=== PATIENT | male | born 2005 | race Caucasian/White ===

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

== ENCOUNTER 2024-03-19 11:01 | Emergency (ER) | payer SELFPAY ==
[2024-03-19 11:06] VITALS: BP 151/87; PULSE 53; RESP 16; TEMP 36.7; O2SAT 100
--- NOTE | 2024-03-19 11:13 | ED.GENADULT ---
HPI - General Adult General Chief complaint: Nausea/Vomiting/Diarrhea Stated complaint: Vomiting Blood Time Seen by Provider: 03/19/24 11:18 Source: patient, RN notes reviewed and old records reviewed Mode of arrival: ambulatory Limitations: no limitations History of Present Illness HPI narrative: 19-year-old male to Express care with complaint of nausea and vomiting with mild epigastric pain that started this morning. Patient reports having intermittent nausea and vomiting with blood in his vomit for the past 4 months. Patient states he is awaiting an endoscopy. Patient denies fever, abdominal pain, chest pain, shortness of breath, bowel changes, urinary changes. Patient requesting work note. Patient hypertensive in triage, denies pertinent history. Respirations even and nonlabored. Patient in no acute distress. Related Data Home Medications Medication Instructions Recorded Confirmed omeprazole 20 mg capsule,delayed 20 mg PO DAILY 07/07/21 05/17/23 release Allergies Allergy/AdvReac Type Severity Reaction Status Date / Time No Known Allergies Allergy Verified 03/19/24 11:02 Review of Systems Review of Systems: All systems reviewed & are unremarkable except as noted in HPI and below Constitutional: Constitutional: Reports no additional constitutional complaints Eyes: Eyes: Reports no additional eye complaints ENT: Reports system reviewed and no additional complaints, except as documented Cardiovascular: Cardiovascular: Reports no additional cardiovascular complaints, Denies chest pain and Denies dyspnea Respiratory: Respiratory: Reports no additional respiratory complaints, Denies cough and Denies dyspnea Gastrointestinal: Gastrointestinal: Reports nausea and Reports vomiting (blood tinged per pt) Musculoskeletal: Musculoskeletal: Reports no additional musculoskeletal complaints Neurologic: Reports system reviewed and no additional complaints, except as documented Psychiatric: Psychiatric: Reports no additional psychiatric complaints [facility] Past Medical History Medical History (Updated 03/19/24 @ 11:49 by Thao Corona APRN) GERD (gastroesophageal reflux disease) Surgical History Surgical History (Updated 05/11/23 @ 17:51 by PANKAJ Velazquez, ) No pertinent past surgical history Family History Family History Mother Family history non-contributory Social History Social History Smoking status: Current every day smoker Tobacco type: e-cigarettes/vaping Living arrangements: with family Gender identity (if verbalized by the patient): Male Spiritual care concerns: No Comments At the time of my signature, I reviewed and agree with the nursing past medical, surgical, social, and family history. There is no relevant family history pertinent to the patient complaint. Exam Const: General: cooperative, healthy appearing, comfortable, no acute distress, alert and well nourished Nutritional Appearance: well nourished Orientation/consciousness: patient oriented x3 Limitations: no limitations HENMT: Head: normal to inspection Ears: external ears normal Face/Nose/Sinus: Normal external nose present, Normal nares present, normal facial exam, No erythema and No edema Face and sinus: normal facial exam, no erythema and no edema Mouth: Yes Normal oral and palatal mucosa present Eyes: General: appearance normal, both eyes and all related structures Neck: Neck: normal visual inspection, full ROM and no meningeal signs Lymphatic: no lymphadenopathy noted and no lymphedema noted Chest: Chest palpation & inspection: normal inspection of the chest Resp: Effort & Inspection: normal respiratory effort and able to speak in complete sentences Auscultation: clear to auscultation bilaterally Cardio: Jugular venous distension: no JVD Rate: regular rate Rhy
--- NOTE | 2024-03-19 11:46 | PC.NURSE ---
requested work note for today, said had to call off.
== END 2024-03-19 11:56 | disposition home or self-care (01) ==
PROVIDERS: Emergency Provider Nurse Practitioner Family; PCP Hospitalist
DX: K21.9 Gastro-esophageal reflux disease without esophagitis (principal); F17.290 Nicotine dependence, other tobacco product, uncomplicated
CPT/HCPCS: 99213; G0463

== ENCOUNTER 2024-05-25 10:09 | Emergency (ER) | payer SELFPAY ==
--- NOTE | 2024-05-25 10:18 | ED.GENADULT ---
HPI - General Adult General Chief complaint: Eye Problems Stated complaint: right eye injury Time Seen by Provider: 05/25/24 10:18 Source: patient, RN notes reviewed and old records reviewed Mode of arrival: ambulatory Limitations: no limitations History of Present Illness HPI narrative: 19-year-old male to Express Care for complaint of foreign body to right eye. Patient states that he was doing lawn work yesterday when a foreign object into his eye. Patient reports increased tearing initially and now sensation of dry. Patient states that discomfort improves if he keeps his eye closed. Patient states pain is currently 7/10 and primarily in lower medial corner of eye. Patient attempted to flush the eye at home yesterday after the incident but states that discomfort continues. Unable to complete visual acuity in office because patient has difficult time keeping eye open. Patient denies any known visual changes, allergies, or pertinent medical history. Patient sitting up comfortably in exam room. Respirations even and nonlabored. Patient in no acute distress. Related Data Home Medications Medication Instructions Recorded Confirmed omeprazole 20 mg capsule,delayed 20 mg PO DAILY 07/07/21 05/25/24 release Allergies Allergy/AdvReac Type Severity Reaction Status Date / Time No Known Allergies Allergy Verified 05/25/24 10:27 Review of Systems Review of Systems: All systems reviewed & are unremarkable except as noted in HPI and below Constitutional: Constitutional: Reports no additional constitutional complaints Eyes: Eyes: Reports as per HPI, Denies blind spots, Denies blurry vision, Denies change in vision, Denies decreased night vision, Denies diplopia, Denies eye discharge, Reports dry eyes, Reports irritation, Denies loss of vision, Denies other visual disturbances, Reports eye pain and Reports photophobia ENT: Reports system reviewed and no additional complaints, except as documented Cardiovascular: Cardiovascular: Reports no additional cardiovascular complaints, Denies chest pain and Denies dyspnea Respiratory: Respiratory: Reports no additional respiratory complaints, Denies cough and Denies dyspnea Musculoskeletal: Musculoskeletal: Reports no additional musculoskeletal complaints Neurologic: Reports system reviewed and no additional complaints, except as documented Psychiatric: Psychiatric: Reports no additional psychiatric complaints PMFSH Past Medical History Medical History (Updated 05/25/24 @ 11:07 by Thao Corona APRN) GERD (gastroesophageal reflux disease) Surgical History Surgical History (Updated 05/11/23 @ 17:51 by Anselmo Orona, ONLINE PRODUCER, BC) No pertinent past surgical history Family History Family History Mother Family history non-contributory Social History Social History Smoking status: Current every day smoker Tobacco type: e-cigarettes/vaping Living arrangements: with family Gender identity (if verbalized by the patient): Male Spiritual care concerns: No Comments At the time of my signature, I reviewed and agree with the nursing past medical, surgical, social, and family history. There is no relevant family history pertinent to the patient complaint. Exam Const: General: cooperative, healthy appearing, comfortable, no acute distress, alert and well nourished Nutritional Appearance: well nourished Orientation/consciousness: patient oriented x3 Limitations: no limitations HENMT: Head: normal to inspection Ears: external ears normal Face/Nose/Sinus: Normal external nose present, Normal nares present, normal facial exam, No erythema and No edema Face and sinus: normal facial exam, no erythema and no edema Mouth: Yes Normal oral and palatal mucosa present Eyes: Visual Blevins: normal visual blevins by confrontation Alignment and Posi
[2024-05-25 10:28] VITALS: BP 143/64; PULSE 66; RESP 18; TEMP 36.7; O2SAT 98
== END 2024-05-25 11:10 | disposition home or self-care (01) ==
PROVIDERS: Emergency Provider Nurse Practitioner Family; PCP Hospitalist
DX: T15.11XA Foreign body in conjunctival sac, right eye, initial encounter (principal); W44.9XXA Unspecified foreign body entering into or through a natural orifice, initial encounter; Y93.H9 Activity, other involving exterior property and land maintenance, building and construction; K21.9 Gastro-esophageal reflux disease without esophagitis; F17.290 Nicotine dependence, other tobacco product, uncomplicated
CPT/HCPCS: 99213; A9270; G0463

== ENCOUNTER 2024-11-24 10:46 | Emergency (ER) | payer OTHER, SELFPAY ==
--- OUTSIDE RECORDS SUMMARY | 2024-11-24 10:54 | XMS_ITS | Encounter Summary ---
Author Organization [facility] Address [address] [place] [address] Phone Care Team Providers Care Tool And Die Machinist Name Role Phone Logan Mahan MD Primary Care Provider [phone] Shilpi Anguiano APRN, LEAD DIE MOLDER Unavailable Reason for Visit * Reason Comments Medication Refill Encounter Details Date Type Department Care Team (Late st Contact Info) Description 11/16/2024 [facility] [address] [place] [id number] Shilpi Anguiano APRN, LEAD DIE MOLDER [address] [place] [address] Medication Refill Social History Tobacco Use Types Packs/Day Years Used Date Smoking Tobacco: Former Smokeless Tobacco: Never Alcohol Use Standard Drinks/Week Comments No 0 (1 standard drink = 0.6 oz pur e alcohol) Sex and Gender Information Value Date Recorded Sex Assigned at Not on file Legal Sex Male 10:04 PM CDT Gender Identity Not on file Sexual Orientation Not on file documented as of this encounter Plan of Treatment Upcoming Encounters Date Type Department Care Team (Late st Contact Info) Description 12/01/2024 3:30 PM FURNITURE SPRAYER Office Visit [facility] [address] [place] [phone] Shilpi Anguiano APRN, LEAD DIE MOLDER [address] [place] [address] documented as of this encounter Visit Diagnoses Diagnosis Gastroesophageal reflux disease, unspecified whether esophagitis present Epigastric pain Abdominal pain, epigastric documented in this encounter Care Teams Tool And Die Machinist Relationship Specialty Start Date End Date Logan Mahan MD [address] [place] [address] PCP - General Family Medicine 05/09/23 Shilpi Anguiano APRN, LEAD DIE MOLDER [address] [place] [address] Nurse Practitioner Advanced Practice Nurse 12/06/23 documented as of this encounter
--- OUTSIDE RECORDS SUMMARY | 2024-11-24 10:54 | XMS_ITS | Clinical Summary ---
Author Organization [facility] Address [address] [place] [address] Care Team Providers Care Contact Lens Manufacturer Name Role Phone Logan Mahan MD Primary Care Provider [phone] Allergies No known active allergies Medications omeprazole (PriLOSEC) 20 mg capsuleIndicati ons:Gastroesoph ageal reflux disease without esophagitis Take 1 capsule (20 mg total) by mouth daily 90 capsule 08/15/20 24 025 Active famotidine (PEPCID) 20 mg tablet TAKE 1 TABLET (20 MG TOTAL) BY MOUTH 2 (TWO) TIMES A DAY 180 tablet 11/17/19 25 027 Active propranoloL (INDERAL) 20 mg tablet TAKE 1 TABLET (20 MG TOTAL) BY MOUTH 2 (TWO) TIMES A DAY 180 tablet 11/17/19 25 027 Active SUMAtriptan (IMITREX) 50 mg tabletIndicatio ns:Migraine TAKE 1 TABLET (50 MG TOTAL) BY MOUTH ONCE NEEDED FOR MIGRAINE MAY REPEAT AFTER 2 HOURS. 27 tablet 10 11/17/19 25 026 Active famotidine (PEPCID) 20 mg tablet Take 1 tablet (20 mg total) by mouth 2 (two) times a day 180 tablet 08/15/20 24 025 Discontinued propranoloL (INDERAL) 20 mg tablet Take 1 tablet (20 mg total) by mouth 2 (two) times a day 180 tablet 08/15/20 24 025 Discontinued SUMAtriptan (IMITREX) 50 mg tabletIndicatio ns:Migraine Take 1 tablet (50 mg total) by mouth once as needed for migraine May repeat after 2 hours. 27 tablet 08/15/20 24 025 Discontinued Active Problems Problem Noted Date Diagnosed Date Tension type headache 11/03/2022 Assessment & Plan (04/27/2023 3:09 PM CDT): Stable, generally controlled, continue propranolol 20 mg b.i.d., sumatriptan 50 mg daily Assessment & Plan (11/03/2022 5:29 PM IP ATTORNEY): Patient reports headaches last for 1-2 days; no relief with Tylenol, has not tried ibuprofen; gets approximately 6-7 per month, reports sensitivity to light, does not tolerate loud noises or voices Most consistent with migraine well 20 mg b.i.d. ; sumatriptan 50 mg p.r.n. for acute headache Gastroesophageal reflux disease without esophagi tis 11/03/2022 Assessment & Plan (04/27/2023 3:09 PM CDT): Not well controlled, has been vomiting for the past 2-3 weeks, worse in morning Nonbloody, nonbilious Start famotidine 20 mg b.i.d., Prilosec 20 mg daily If no improvement, refer to GI Assessment & Plan (11/03/2022 5:29 PM IP ATTORNEY): Patient reports some foods cause stomach pain, especially hot spicy foods greasy foods; no issues with tomato sauces Start famotidine 20 mg b.i.d. 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 10/21/2011 Bipolar affective disorder 10/21/2011 Assessment & Plan (04/27/2023 3:10 PM CDT): Continues to have ups and Downs, no current medications, would recommend follow- up psychiatry for further management Assessment & Plan (11/03/2022 5:30 PM IP ATTORNEY): Not well controlled, patient reports no current medications, working to establish Psychiatry at [facility] Patient currently stable enough, has been on multiple medications in the past and will hold medications until decision made by Psychiatry 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 10/21/2011 Oppositional defiant disorder 10/21/2011 Encounters Date Type Department Care Team Description 09/19/2024 [facility]phone [facility] [address] [place] [address] Logan Mahan MD Appointment Request from Last 3 Months Immunizations Name Administration Dates Next Due DT 10/06/2013 DTaP 04/05/2008, 5,2004,06/02,2004 HPV, Quadrivalent 04/26/2015,02/20/2015 HPV9 02/11/2016 Hep A, Ped Unspecified 08/19/2006,01/27/2006 Hep B, Adolescent or Pediatric 4,2004,2004,01/22 HiB 05/13/2005, 4,2004,04/01 IPV 04/05/2008, 4,2004,04/01 Influenza, Quadrivalent, Liza l Culture-based MDCK, Preservative Free, Antibiotic Free, Intramuscular 09/16/2021 Influenza, Quadrivalent, Spl it, Preservative Free, Intramuscular 09/17/2022,11/28/2020,02/27/2019,09/01,09/29/2016,09/17/2015 Influenza, Split 08/19/2006,08/31/2005, 4 Influenza, Unspecified 10/03/2024(Deferr ed: Patient Refused),07/19/2023(Deferred: Patient Refused) MMR 04/05/2008,2005 Meningococcal B, OMV (Bexsero) 01/08/2021,2020 Meningococcal Conjugate (Menveo) 02/20/2015 Meningococcal MCV4P (Menactra) 11/28/2020 Pneumococcal Conjugate 7-Valent 05/13/20 05,2004,2004,04/01 TD Preservative Free 10/06/2013 Tdap 02/11/2016,10/06/2013 Varicella 04/05/2008,2005 Surgical History Surgery Date Site/Laterality Comments TONSILECTOMY, ADENOIDECTOMY, BILATERAL MYRINGOTOMY AND TUBES 10/11/2013 - 10/10/2014 Medical History Medical History Date Comments Depression Anxiety Adhd PTSD (post-traumatic stress disorder) OCD (obsessive compulsive disorder) Family History Medical History Relation Name Comments Stroke Brother Hypertension Father Depression Maternal Grandfather Diabetes type II Maternal Grandfather Heart disease Maternal Grandfather Seizures Maternal Grandfather Depression Maternal Grandmother Diabetes type II Maternal Grandmother Hypertension Maternal Grandmother Mental illness Maternal Grandmother Stent Maternal Grandmother Diabetes type II Mother Heart disease Mother Psychosis Mother fatty liver Mother heart disease Mother Diabetes Paternal Grandfather Kidney disease Paternal Grandmother Cancer Sister Relation Name Status Comments Brother Father Other Maternal Grandfather Maternal Grandmother Mother Paternal Grandfather Paternal Grandmother Sister Social History Tobacco Use Types Packs/Day Years Used Date Smoking Tobacco: Some Days Cigarettes 0.3 1 Vaping Smokeless Tobacco: Never Tobacco Cessation:Ready to Q uit: Not Asked; Counseling Given: Not Answered AUDIT-C Answer Date Recorded Q1: How often do you have a drink containing alc ohol? Never 03/24/2023 Average Number of Drinks Not on file 023 Frequency of Binge Drinking Not on file 03/11 PHQ-2 Answer Date Recorded PHQ-2 Total Score (If total score is 3 or more points, staff should administer the PHQ-9) 0 03/24/2023 Exercise Vital Sign Answer Date Recorde d On average, how many days pe r week do you engage in moderate to strenuous exercise (like a brisk walk)? 2 days 10/28/2022 On average, how many minutes do you engage in exercise at this level? 90 min 10/28/2022 Personal Safety Answer Date Recorded Getting School Help Needed Not on file 10/12 Sex and Gender Information Value Date Recorded Sex Assigned at Not on file Legal Sex Male 5:50 AM IP ATTORNEY Gender Identity Not on file Sexual Orientation Not on file Obstetrics History Last Filed Vital Signs Vital Sign Reading Time Taken Comments Blood Pressure 110/70 03/24/2023 1:04 PM CDT Pulse 58 03/24/2023 1:04 PM CDT Temperature 36.6 C (97.9 F) 03/24/2023 1:04 PM CDT Respiratory Rate 16 03/24/2023 1:04 PM CDT Oxygen Saturation 98% 03/24/2023 1:04 PM CDT Inhaled Oxygen Concentration - - Weight 97.3 kg (214 lb 9.6 oz) 03/24/2023 1:04 P M CDT Height 152.4 cm (5') 03/24/2023 1:04 PM CDT Body Mass Index 41.91 03/24/2023 1:04 PM CDT Plan of Treatment Health Maintenance Due Date Last Done Comments Hepatitis C Screening 2004 Regular Well Visit/Exam 18-64 01/22/2022 Depression Screening 03/24/2024 03/24/2023, 10/28/19 23 Covid-19 Vaccine ( season) 2024 09/17/2022, 09/25/2021, 02/27/2021, Additional history exists Influenza Vaccine (#1) 2025 , 09/16/2021, 11/28/2020, Additional history exists Postponed from 06/11/2024 (Patient declined, but will receive in the future) Pneumococcal vaccine <65 (1 of 1 - PPSV23 or PCV20) 09/18/2025 05/13/2005, 2004, 2004, Additional history exists Postponed from 01/22/2010 (Patient declined, but will receive in the future) DTaP/Tdap/Td Vaccine (7 - Td or Tdap) 02/10/2026 02/11/2016, 10/06/2013, 10/06/2013, Additional history exists Hepatitis B Screening Completed 2004 , 2004, 2004, Additional history exists Varicella Vaccines Completed 04/05/2008, 2005 HPV Vaccines Completed 02/11/2016, 04/10, 02/20/2015 Meningococcal Vaccine Completed 11/28/2020, 015 Meningococcal B Vaccine Completed 01/08/2021, 11/[address] [facility] Care Teams Contact Lens Manufacturer Relationship Specialty Start Date End Date Logan Mahan MD [address] [place] [address] PCP - General Family Medicine 05/05/22
--- OUTSIDE RECORDS SUMMARY | 2024-11-24 10:54 | XMS_ITS ---
Author Organization [facility] Address [address] [place] [address] Phone Care Team Providers Care Continuous Loft Operator Name Role Phone Logan Mahan MD Primary Care Provider [phone] Shilpi Anguiano APRN, DIRECTOR OF STRATEGIC INITIATIVES Unavailable [facility] Status:Enrolled (Active) Start date:11/08/2024 Enrollment date:11/08/2024 Related social drivers of health:Intimate Partner Violence, Social Connections, Alcohol Use, Tobacco Use, Financial Resource Strain,Depression, Stress, Physical Activity, Food Insecurity, Transportation Needs, Housing Stability, Utilities Continued Care and Services Coordination
--- OUTSIDE RECORDS SUMMARY | 2024-11-24 10:54 | XMS_ITS | Referral Summary ---
Author Organization [facility] Address [address] [place] [address] Care Team Providers Care Ball Winder Name Role Phone Logan Mahan MD Primary Care Provider [phone] Encounters Date Type Department Care Team Description 09/19/2024 [facility]phone [facility] [address] [place] [address] Logan Mahan MD Appointment Request from Last 3 Months Allergies No known active allergies Medications omeprazole [...] (TWO) TIMES A DAY 180 tablet 11/17/19 027 Active SUMAtriptan (IMITREX) 50 mg tabletIndicatio ns:Migraine TAKE 1 TABLET (50 MG TOTAL) BY MOUTH ONCE NEEDED FOR MIGRAINE MAY REPEAT AFTER 2 HOURS. 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 10/21/2011 Oppositional defiant disorder 10/21/2011 Immunizations Name Administration Dates Next Due DT [...] Preservative Free 10/06/2013 Tdap 02/11/2016,10/06/2013 Varicella 04/05/2008,2005 Social History Tobacco Use Types Packs/Day Years [...] on file Legal Sex Male 5:50 AM SHORER Gender Identity Not on file Sexual Orientation Not on file Last Filed Vital Signs Vital Sign Reading [...] 03/24/2023 1:04 PM CDT Plan of Treatment Not on file Insurance [facility] Care Teams Ball Winder Relationship Specialty Start Date End Date [place] [address] PCP - General Family Medicine 05/05/22
--- OUTSIDE RECORDS SUMMARY | 2024-11-24 10:54 | XMS_ITS | Clinical Summary ---
Author Organization [facility] Address [address] [place] [address] Phone Care Team Providers Care Calciner Operator Helper Name Role Phone Logan Mahan MD Primary Care Provider [phone] Shilpi Anguiano APRN, FIRE EXTINGUISHER TESTER Unavailable Allergies No known active allergies Medications ondansetron (ZOFRAN) 4 MG Tablet Take 1 Tab by mouth every 8 hours as needed for Nausea. 10 Tab 0 5 Active Additional Information Patient not taking.Reported on 11/08/2023 ondansetron (ZOFRAN ODT) 4 MG TABLET DISPERSIBLE Take 1 Tab by mouth every 4 hours as needed for Nausea. 10 Tab 7 Active Additional Information Patient not taking.Reported on 11/08/2023 mirtazapine (REMERON) 15 MG Tablet TK 1 T PO QD HS 7 Active QUEtiapine (SEROQUEL) 100 MG Tablet TK 1 T PO QD IN THE AJ 7 Active naproxen (NAPROSYN) 500 MG Tablet Take 1 Tab by mouth 2 times daily as needed for Moderate or more severe pain. 20 Tab 9 Active Additional Information Patient not taking.Reported on 11/08/2023 lithium 300 MG Tablet Take 300 mg by mouth 2 times daily. Active ondansetron (ZOFRAN) 4 MG Tablet Take 1 Tab by mouth every 8 hours as needed for Nausea - 1st line. 10 Tab 0 Active Additional Information Patient not taking.Reported on 07/14/2022 ibuprofen (MOTRIN) 200 MG Tablet Take 3 Tablets by mouth every 8 hours. 30 Tablet 1 Active Additional Information Patient not taking.Reported on 07/14/2022 methylPREDNISolo ne (MEDROL DOSPACK) 4 MG Tablet Therapy Pack See product package insert for dosing schedule 21 Tablet 1 Active Additional Information Patient not taking.Reported on 07/14/2022 azithromycin (Zithromax Z-Steven) 250 MG Tablet 2 tab(s) daily for 1 day, then 1 tab(s) daily for days 2-5. 6 Tablet 1 Active Additional Information Patient not taking.Reported on 07/14/2022 HYDROcodone-acet aminophen (NORCO) 5-325 MG TabletIndication s:Tooth fracture,Cervica l strain, acute, initial encounter Take 1 Tablet by mouth every 8 hours as needed for Moderate or more severe pain. 12 Tablet 2 Active Additional Information Patient not taking.Reported on 11/08/2023 ibuprofen (MOTRIN) 200 MG Tablet Take 2 Tablets by mouth every 6 hours as needed for Fever. 30 Tablet 2 Active Additional Information Patient not taking.Reported on 11/08/2023 SUMAtriptan (IMITREX) 50 MG Tablet Take 50 mg by mouth. 3 Active propranolol (INDERAL) 20 MG Tablet Take 20 mg by mouth. 3 Active omeprazole (PriLOSEC) 40 MG CAPSULE DELAYED RELEASEIndicatio ns:Gastroesophag eal reflux disease, unspecified whether esophagitis present,Epigastr ic pain Take 1 Capsule by mouth daily. 90 Capsule 3 4 Active Active Problems No known active problems Encounters Date Type Department Care Team Description 11/16/2024 Refill [facility] - Gastroenterology [facility] [address] [place] [address] Shilpi Anguiano APRN, FIRE EXTINGUISHER TESTER Medication Refill from Last 3 Months Social History Tobacco Use Types Packs/Day Years Used Date Smoking Tobacco: Former Smokeless Tobacco: Never Tobacco Cessation:Counseling Given: Not Answered Alcohol Use Standard Drinks/Week Comments No 0 (1 standard drink = 0.6 oz pur e alcohol) Sex and Gender Information Value Date Recorded Sex Assigned at Not on file Legal Sex Male 10:04 PM CDT Gender Identity Not on file Sexual Orientation Not on file Last Filed Vital Signs Vital Sign Reading Time Taken Comments Blood Pressure 124/74 11/08/2023 3:32 PM PLATE AND WELD INSPECTOR Pulse 90 11/08/2023 3:32 PM PLATE AND WELD INSPECTOR Temperature 36.7 C (98.1 F) 11/08/2023 3:32 PM PLATE AND WELD INSPECTOR Respiratory Rate 16 11/08/2023 3:32 PM PLATE AND WELD INSPECTOR Oxygen Saturation 99% 11/08/2023 3:32 PM PLATE AND WELD INSPECTOR Inhaled Oxygen Concentration - - Weight 93.1 kg (205 lb 3.2 oz) 11/08/2023 3:32 P M PLATE AND WELD INSPECTOR Height 176.5 cm (5' 9.5 ) 11/08/2023 3:32 PM PLATE AND WELD INSPECTOR Body Mass Index 29.87 11/08/2023 3:32 PM PLATE AND WELD INSPECTOR Plan of Treatment Upcoming Encounters Date Type Department Care Team (Late st Contact Info) Description 12/01/2024 3:30 PM PLATE AND WELD INSPECTOR Office Visit [facility] - [facility] [address] [place] [address] Shilpi Anguiano APRN, FIRE EXTINGUISHER TESTER [address] [place] [address] Health Maintenance Due Date Last Done Comments Hepatitis C Virus (HCV) Screening 2004 Influenza Immunization (#1) 2024 12/0 05/2022, 09/16/2021, 11/28/2020, Additional history exists SARS-COV-2 Immunization ( season) 2024 09/17/2022, 09/25/2021, 02/27/2021, Additional history exists Respiratory Syncytial Virus (RSV) Immunization (Adult) (1 - 1-dose 75+ series) 01/22/2079 Hepatitis B Immunization Completed 004, 2004, 2004, Additional history exists Pneumococcal Immunization Combined Aged Out 05/13/2005, 2004, 2004, Additional history exists No longer eligible based on patient's age to complete this topic Hepatitis A Immunization Discontinued 08/19/2006, 01/09 Measles Mumps Rubella (MMR) Immunization Discontinued 04/05/2008, 2005 Polio (IPV) Immunization Discontinued 008, 2004, 2004, Additional history exists Varicella Immunization Discontinued 04/05/2008, 2004 DTaP/Tdap/Td Immunization Discontinued 2015, 10/06/2013, 10/06/2013, Additional history exists Human Papillomavirus (HPV) Immunization Completed 02/11/2016, 04/26/2015, 02/20/2015 TdaP Immunization Completed 02/11/2016, 10/06/2013 Meningococcal Immunization (ACWY) Completed 11/28/2020, 02/20/2015 Meningococcal B Immunization Completed 01/08/2021, 11/28/2020 Rotavirus Immunization Aged Out No lo nger eligible based on patient's age to complete this topic Care Teams Calciner Operator Helper Relationship Specialty Start Date End Date Logan Mahan MD [address] [place] [address] PCP - General Family Medicine 05/09/23 Shilpi Anguiano APRN, FIRE EXTINGUISHER TESTER [address] [place] [address] Nurse Practitioner Advanced Practice Nurse 12/06/23
[2024-11-24 10:56] VITALS: BP 134/74; PULSE 69; RESP 16; TEMP 36.8; O2SAT 100
--- NOTE | 2024-11-24 11:21 | ED_ITS ---
HPI - URI/Sore Throat General Chief Complaint: Upper Respiratory Infection Stated Complaint: throat History of Present Illness HPI Narrative: 19 y/o male presented for c/o sore throat, nasal congestion and cough. Onset 3 days. Denies sob, wheezing,n/v/d/f/c. Related Data Home Medications ?Medication ?Instructions ?Recorded ?Confirmed ?Last Taken ?Type omeprazole 20 mg capsule,delayed 20 mg PO DAILY 07/07/21 11/24/24 Unknown History release famotidine 20 mg tablet mg 11/24/24 Unknown History propranolol 20 mg tablet mg 11/24/24 Unknown History sumatriptan succinate 50 mg tablet mg PO 11/24/24 Unknown History Allergies Allergy/AdvReac Type Severity Reaction Status Date / Time No Known Allergies Allergy Verified 11/24/24 10:51 Review of Systems Review of Systems: per [facility] Past Medical History Medical History (Updated 11/24/24 @ 11:33 by Felicita Murillo APRN) GERD (gastroesophageal reflux disease) Surgical History Surgical History (Updated 05/11/23 @ 17:51 by Anselmo Orona, PANKAJ, ) No pertinent past surgical history Family History Family History Mother Family history non-contributory Social History Social History Smoking status: Current every day smoker Tobacco type: e-cigarettes/vaping Living arrangements: with family Gender identity (if verbalized by the patient): Male Spiritual care concerns: No Exam Narrative: GENERAL: well-appearing, no acute distress. EYES: conjunctivae clear ENT: Mucous membranes moist. TMs pearly figueroa with normal light reflex bilaterally; no tragal tenderness. Oropharynx not erythematous without lesions. No drooling, no hoarseness, no trismus, uvula midline. No tripod positioning, hot potato voice, or soft palate swelling. NECK: Supple. No lymphadenopathy CHEST: Clear to auscultation, breath sounds equal. No respiratory distress, speaks in full sentences. HEART: Regular rate and rhythm. No murmur heard. SKIN: Warm, dry, no rash. NEURO: Alert and oriented x3. Course Course Emergency Course: Patient is aware of diagnosis, understands and agrees to treatment plan. Anticipatory guidance given. Patient agrees to follow-up as directed and is aware of reasons to seek care at the emergency department. Portions of this record may have been created with voice recognition software Level of Care: Express Care Visit Vital Signs Vital signs: Vital Signs Temperature 98.2 F 11/24/24 10:56 Pulse Rate 69 11/24/24 10:56 Respiratory Rate 16 11/24/24 10:56 Blood Pressure 134/74 11/24/24 10:56 Pulse Oximetry 100 11/24/24 10:56 Oxygen Delivery Room Air 11/24/24 10:56 Temperature 98.2 F 11/24/24 10:56 Pulse Rate 69 11/24/24 10:56 Respiratory Rate 16 11/24/24 10:56 Blood Pressure 134/74 11/24/24 10:56 Pulse Oximetry 100 11/24/24 10:56 Oxygen Delivery Room Air 11/24/24 10:56 MDM - URI/Sore Throat MDM Narrative Medical decision making narrative: neg flu, covid, strep result reviewed with pt. Advise supportive treatments. Patient is appropriate for outpatient treatment and follow-up. Differential Diagnosis Differential diagnosis: Likely upper respiratory infection, viral infection and pharyngitis Discharge Plan Discharge Clinical Impression: Viral infection Patient Disposition: Home, Self-Care Condition: Stable Instructions: Antibiotic Form, Upper Respiratory Infection (ED) Additional Instructions: flu and COVID negative. Rapid strep swab was negative today You will be notified in a few days if the culture comes back positive for strep, and appropriate antibiotics will be called in at that time. if symptoms are due to a viral illness, it is not treated with antibiotics. Viral symptoms can be present for up to 10-14 days. Recommendations: Flonase spray and Zyrtec for sinus congestion Cough syrup may cause drowsiness; avoid driving or take it at night time. Tylenol every 8 hours as needed for pain/fever Soft foods, cool liquids, warm tea. Gargle with warm saltwater twice a day. Chloraseptic spray and throat lozenges. Rest and stay hydrated. --Follow up with your PCP --Go to the ER immediately if you cannot swallow your saliva, trouble breathing/wheezing, throat swelling, pain is persistent and severe Patient Language: Mauritanian Prescriptions: No Action omeprazole 20 mg capsule,delayed release(DR/EC) 20 mg PO DAILY sumatriptan succinate 50 mg tablet PO famotidine 20 mg tablet propranolol 20 mg tablet Follow-up/Referrals: Negrito,MD Logan [Primary Care Provider] - Stand Alone Forms: Work/School Release IP
[2024-11-24 11:35] LABS: EDCOVIDSCREEN Negative (Negative); EDINFLUASCREEN Negative (Negative); EDINFLUBSCREEN Negative (Negative); EDSTREPNEGPOS1 Negative (Negative)
== END 2024-11-24 11:36 | disposition home or self-care (01) ==
PROVIDERS: Emergency Provider Nurse Practitioner Family; PCP Hospitalist
DX: B34.9 Viral infection, unspecified (principal); F17.290 Nicotine dependence, other tobacco product, uncomplicated; Z79.899 Other long term (current) drug therapy; Z20.822 Contact with and (suspected) exposure to COVID-19
CPT/HCPCS: 87081; 87426; 87804; 87880; 99213; G0463